=== PATIENT | male | born 1995 | race Caucasian/White ===

== ENCOUNTER 2017-01-11 15:42 | Emergency (ER) | payer SELFPAY ==
[~2017-01-11 15:42] MED LIST: ALBUTEROL17 GM INH; ATARAX PO; IBUPROFEN PO; NO MEDICATIONS; NORCO1 TAB 10/3 PO; PREDNISONE PO
== END 2017-01-11 16:22 | disposition home or self-care (01) ==
LOC: SED 15:42
DX: L72.3 Sebaceous cyst (principal); M19.90 Unspecified osteoarthritis, unspecified site; Z79.899 Other long term (current) drug therapy
CPT/HCPCS: 99283